=== PATIENT | female | born 1945 | race Hispanic/Latino ===

== ENCOUNTER 2018-01-26 14:17 | Emergency (ER) | payer OTHER ==
[~2018-01-26 14:17] MED LIST: BACL10TA PO; INSLAN SQ; LISI-613 PO; METF-445 PO
[2018-01-26] MEDS ORDERED: ACETAMINOPHEN-CODEINE 300/30MG TAB ONE (15:24)
[2018-01-26 16:05] LABS: APPEARANCE,URINE Clear (CLEAR); BILIRUBIN,URINE Negative (NEGATIVE); COLOR,URINE Yellow (YELLOW); GLUCOSE, URINE (UA) >=1000 mg/dL (NEGATIVE); KETONES,URINE Negative (NEGATIVE); LEUKOCYTE ESTERASE ,URINE Trace (NEGATIVE); NITRATE,URINE Negative (NEGATIVE); OCCULT BLOOD,URINE Negative (NEGATIVE); PROTEIN,URINE Negative (NEGATIVE)
[2018-01-26] MEDS ORDERED: SODIUM CHLORIDE 0.9% 1000ML 1,000 ML IV ONE (16:19)
[2018-01-26 16:28] LABS: BACTERIA,URINE Moderate /HPF (None Seen); RBC,URINE 0-1 /HPF (0-1)
[2018-01-26 16:29] LABS: SQUAMOUS EPITHELIAL CELL,UR Rare /HPF (0-2)
[2018-01-26 16:40] LABS: BASOPHILS % (AUTO) 0.7 % (0.0-5.0); EOSINOPHILS % (AUTO) 1.1 % (0.0-8.0); HEMATOCRIT 32.3 % (36-48); LYMPHOCYTES % (AUTO) 19.4 % (21.0-51.0); MEAN CORPUSCULAR HGB CONC 34.5 g/dL (32.0-36.0); MEAN CORPUSCULAR VOLUME 90.1 fL (79-99); MONOCYTES % (AUTO) 5.8 % (3.0-13.0); PLATELET COUNT (AUTO) 277 K/uL (130-400); RED BLOOD CELL COUNT(AUTO) 3.59 MIL/uL (4.00-5.50); RED CELL DISTRIBUTION WIDTH 13.4 % (11.0-15.5); WHITE BLOOD COUNT (AUTO) 7.7 K/uL (4.8-10.8)
[2018-01-26 16:55] LABS: CREATININE 0.8 mg/dL (0.5-1.5)
[2018-01-26 17:00] LABS: ALBUMIN 3.3 g/dL (3.5-5.0); BILIRUBIN,TOTAL 0.6 mg/dL (0.2-1.0)
[2018-01-26] MEDS ORDERED: IOHEXOL-350 75 ML VIAL IV ONE (17:49)
[2018-01-26] MEDS ORDERED: LIDOCAINE HCL MPF 1% 5ML VIAL ONE (20:23)
[2018-01-26] MEDS ORDERED: CEFTRIAXONE SODIUM 1 GM ONE (20:24)
[2018-01-26] MEDS ORDERED: KETOROLAC TROMETHAMINE 30MG/ML ONE (20:24)
== END 2018-01-26 20:56 | disposition home or self-care (01) ==
LOC: EDH 14:17
DX: M25.552 Pain in left hip (principal); N13.30 Unspecified hydronephrosis; N39.0 Urinary tract infection, site not specified; E11.9 Type 2 diabetes mellitus without complications; I10 Essential (primary) hypertension; F41.9 Anxiety disorder, unspecified; Z90.710 Acquired absence of both cervix and uterus
CPT/HCPCS: 36415; 74176; 74177; 80053; 81001; 82948; 83690; 85025; 96372 ×2; 99285; J0696; J1885; J3490; J7030; Q9967

== ENCOUNTER → 2018-02-23 | Outpatient (CLI) | payer OTHER ==
[~2018-02-23] MED LIST changes: +IOHEXOL 350 MG/ML 100ML INFUS..BTL IV ONE
== END | disposition home or self-care (01) ==
LOC: OIH 09:01
PROVIDERS: ATTEND Family Medicine
DX: N28.89 Other specified disorders of kidney and ureter (principal)
CPT/HCPCS: 74178; Q9967